=== PATIENT | female | born 1975 | race Caucasian/White ===

== ENCOUNTER 2021-11-13 06:20 | Day surgery (SDC) | payer OTHER ==
[2021-11-13] MEDS ORDERED: Lactated Ringers 1,000 ML IV ONE ×2 (06:47→08:41)
[2021-11-13] MEDS ORDERED: Lactated Ringers 1,000 ML IV SCH (07:00)
[2021-11-13] MEDS ORDERED: Versed 2 MG/2 ML Injection ONE (07:55)
[2021-11-13] MEDS ORDERED: DIPRIVAN 200 MG/20 ML IV ONE ×2 (07:55→08:41)
[2021-11-13 09:34] VITALS: O2SAT 99
[2021-11-13 09:38] VITALS: BP 152/80; PULSE 67
--- NOTE | 2021-11-13 09:55 | OP ---
SURGERY DATE/TIME: 11/13/2021 08 PREOPERATIVE DIAGNOSES: 1) Screening colonoscopy. 2) Family history of colon cancer. POSTOPERATIVE DIAGNOSIS: Normal colon. PROCEDURE: Colonoscopy. SURGEON: Brian Marcum M.D. ANESTHESIA: MAC by Kyle Jose CRNA. ESTIMATED BLOOD LOSS: None. SPECIMENS: None. DESCRIPTION OF PROCEDURE: After informed written consent was obtained, the patient was taken to the endoscopy suite. She was placed in left lateral decubitus position and had anesthesia titrated to desired level of consciousness. Digital rectal exam showed normal sphincter tone and no internal lesions. The scope was inserted into the rectum and sequentially the entire colonic mucosa was traversed. The level of cecum was reached and verified with direct visualization of the ileocecal valve. Upon withdrawal careful mucosal inspection revealed no gross abnormality. Prep was noted to be fair. Prior to withdrawal retroflexion was performed and showed no internal lesions. The patient was transferred to the recovery room in good condition.
== END 2021-11-13 09:45 | disposition home or self-care (01) ==
LOC: SDC 06:20
PROVIDERS: ATTEND Family Medicine
DX: Z12.11 Encounter for screening for malignant neoplasm of colon (principal); Z80.0 Family history of malignant neoplasm of digestive organs
CPT/HCPCS: 81025; J2250; J2704